=== PATIENT | female | born 1975 ===

== ENCOUNTER 2018-05-02 15:24 | Emergency (ER) | payer OTHER ==
[2018-05-02 15:24] VITALS: BMI 21.2
[2018-05-02 16:42] LABS: BASO % 0.5 % (0.0-2.0); EOS # 0.1 K/uL (0.0-0.7); HEMOGLOBIN 12.9 g/dL (11.0-16.0); LYMPH # 2.3 K/uL (1.0-4.3); LYMPH % 29.3 % (20.0-40.0); MEAN CELL VOLUME 91.7 fL (81.0-99.0); MEAN CORPUSCULAR HEMOGLOBIN 31.1 pg (27.0-31.0); MEAN CORPUSCULAR HGB CONC 33.9 g/dL (33.0-37.0); MEAN PLATELET VOLUME 7.6 fL (7.2-11.7); MONO # 0.5 K/uL (0.0-0.8); NEUT # 4.8 K/uL (1.8-7.0); NEUT % 62.2 % (50.0-75.0); NRBC % 0.1 % (0.0-2.0); RBC 4.15 Mil/uL (3.80-5.20); RED CELL DISTRIBUTION WIDTH 13.4 % (11.5-14.5); WHITE BLOOD COUNT 7.7 K/uL (4.8-10.8)
--- NOTE | 2018-05-02 16:52 | C.PDOC ---
History Of Present Illness <Marissa Brown - Last Filed: 05/02/18 17:05> <Francisco Javier Palafox DO - Last Filed: 05/03/18 00:33> Patient is a 43 year old Female with PMHx of ovarian cyst rupture in 2017 who presents for RLQ pain which started yesterday. Pain is described to be sharp and 10/10 which comes and goes and only lasts for a few seconds at a time. Patient tried taking some tylenol with no relief. Patient became worried because her presentation is similar to when she had the ovarian cyst rupture. Additionally, patient had egg retrieval done 2 weeks ago and went to her IVF doctor today who did an ultrasound and assured patient that the pain was not related to the egg retrieval. The IVF doctor recommended patient to go to the ER. Patient did not want to go to the ER yet and decided to go to her primary care physician instead who also encouraged her to go to the ER. At rest patient says her pain is 0/10, but with movement it is 10/10 pain. Patient denies any fevers, nausea, vomiting, constipation, or diarrhea. (Marissa Brown) History Per: Patient History/Exam Limitations: no limitations Onset/Duration Of Symptoms: Days Current Symptoms Are (Timing): Still Present Severity: Moderate Location Of Pain/Discomfort: RLQ Radiation Of Pain To:: None Quality Of Discomfort: Sharp Associated Symptoms: denies: Fever, Nausea, Vomiting, Diarrhea, Constipation Exacerbating Factors: Movement, Walking Alleviating Factors: Rest <Marissa Brown - Last Filed: 05/02/18 17:05> <Francisco Javier Palafox DO - Last Filed: 05/03/18 00:33> Chief Complaint (Nursing): Abdominal Pain Past Medical History - Medical History Other PMH: ovarian cyst rupture in 2017 Surgical History: Other Family History: mother: cervical cancer at 28 - Social History Hx Tobacco Use: No Hx Alcohol Use: Yes Hx Substance Use: No - Immunization History Hx Tetanus Toxoid Vaccination: No Hx Influenza Vaccination: Yes Hx Pneumococcal Vaccination: No <Marissa Brown - Last Filed: 05/02/18 17:05> Family History: States: No Known Family Hx <Francisco Javier Palafox DO - Last Filed: 05/03/18 00:33> Vital Signs: Last Vital Signs Temp 98.6 F 05/02/18 19:02 Pulse 68 05/02/18 19:02 Resp 18 05/02/18 19:02 BP 116/72 05/02/18 19:02 Pulse Ox 99 05/02/18 19:02 Review Of Systems Constitutional: Negative for: Fever, Chills Cardiovascular: Negative for: Chest Pain Respiratory: Negative for: Shortness of Breath Gastrointestinal: Positive for: Abdominal Pain (RLQ). Negative for: Nausea, Vomiting, Diarrhea, Constipation Genitourinary: Negative for: Dysuria Skin: Negative for: Rash <Marissa Brown - Last Filed: 05/02/18 17:05> Physical Exam - Physical Exam Appears: Non-toxic, No Acute Distress Skin: Normal Color, Warm, Dry Head: Atraumatic, Normacephalic Eye(s): bilateral: Normal Inspection Neck: Normal ROM Chest: Symmetrical Cardiovascular: Rhythm Regular, No Edema Respiratory: Normal Breath Sounds, No Accessory Muscle Use, No Rales, No Rhonchi , No Wheezing Gastrointestinal/Abdominal: Bowel Sounds, Soft, Tenderness (RLQ), Guarding (RLQ) Back: Normal Inspection Extremity: Normal ROM, No Tenderness, No Pedal Edema Neurological/Psych: Oriented x3 <Marissa Brown - Last Filed: 05/02/18 17:05> ED Course And Treatment - Laboratory Results Result Diagrams: 05/02/18 16:38 05/02/18 16:38 O2 Sat by Pulse Oximetry: 97 <Marissa Brown - Last Filed: 05/02/18 17:05> - Laboratory Results Result Diagrams: 05/02/18 16:38 05/02/18 16:38 <Francisco Javier Palafox DO - Last Filed: 05/03/18 00:33> Disposition <Marissa Brown - Last Filed: 05/02/18 17:05> - Disposition Disposition Time: 18:45 <Francisco Javier Palafox DO - Last Filed: 05/03/18 00:33> - Disposition Referrals: Cristi Valel [Staff Provider] - Disposition: HOME/ ROUTINE Condition: IMPROVED Additional Instructions: KNU OLIVIA, thank you for letting us take care of you today. Your provider was Francisco Javier Palafox DO. The emergency medical care you received today was directed at your acute symptoms. If you were prescribed any medication , please fill it and take as directed. It may take several days for your symptoms to resolve. Return to the Emergency Department if your symptoms worsen , do not improve, or if you have any other problems. Please contact your doctor or call one of the physicians/clinics you have been referred to that are listed on the Patient Visit Information form that is included in your discharge packet. Bring any paperwork you were given at discharge with you along with any medications you are taking to your follow up visit. Our treatment cannot replace ongoing medical care by a primary care provider outside of the emergency department. Thank you for allowing the [facility] team to be part of your care today. Follow up with your primary doctor in 1-2 days for re-evaluation and further management. Prescriptions: traMADol [Ultram] 50 mg PO Q8 PRN #15 tab PRN Reason: Pain, Severe (8-10) Instructions: Acute Abdomen (Belly Pain), Adult (DC) Forms: [employer] (Lao) - Clinical Impression Clinical Impression: Abdominal pain - PA / [employer] / Resident Statement / has reviewed & agrees with the documentation as recorded. / has examined the patient and agrees with the treatment plan. <Francisco Javier Palafox DO - Last Filed: 05/03/18 00:33>
[2018-05-02 17:01] LABS: URINE BILIRUBIN NEGATIVE (NEGATIVE); URINE BLOOD NEGATIVE (NEGATIVE); URINE CLARITY Clear (Clear); URINE COLOR Straw (YELLOW); URINE GLUCOSE (UA) NORMAL (Normal); URINE LEUKOCYTE ESTERASE NEG Leu/uL (Negative); URINE PROTEIN NEGATIVE (NEGATIVE); URINE UROBILINOGEN NORMAL mg/dL (0.2-1.0)
[2018-05-02 17:01] LABS: ALB/GLOB RATIO 1.2 (1.0-2.1); ALBUMIN 4.5 g/dL (3.5-5.0); AST/SGOT 26 U/L (14-36); BLOOD UREA NITROGEN 16 mg/dL (7-17); CALCIUM 9.7 mg/dl (8.6-10.4); GFR AFRICAN-AMERICAN > 60; GFR NON-AFRICAN AMERICAN > 60
[2018-05-02 17:02] LABS: ALT/SGPT < 6 U/L (9-52)
[2018-05-02] MEDS ORDERED: Iohexol 300 100 ML IJ ONE (18:02)
[2018-05-02] MEDS ORDERED: Morphine 4 MG/ML VIAL IV STA (18:27)
--- NOTE | 2018-05-02 18:36 | CT ---
PROCEDURE: CT Abdomen and Pelvis with contrast HISTORY: r/o appendicitis COMPARISON: CT scan of the abdomen pelvis dated 11/26/2016 performed at [facility]. TECHNIQUE: Contrast dose: 100 mL Omnipaque 300 Radiation dose: Total exam DLP = 293.5 mGy-cm. This CT exam was performed using one or more of the following dose reduction techniques: Automated exposure control, adjustment of the mA and/or kV according to patient size, and/or use of iterative reconstruction technique. FINDINGS: LOWER THORAX: Unremarkable. LIVER: Unremarkable. No gross lesion or ductal dilatation. GALLBLADDER AND BILE DUCTS: Unremarkable. PANCREAS: Unremarkable. No gross lesion or ductal dilatation. SPLEEN: Unremarkable. ADRENALS: Unremarkable. No mass. KIDNEYS AND URETERS: Unremarkable. No hydronephrosis. No solid mass. VASCULATURE: Unremarkable. No aortic aneurysm. BOWEL: Stable appearance of nonspecific coarse calcification along the lateral cecal wall. No obstruction. No gross mural thickening. APPENDIX: Normal appendix. PERITONEUM: Unremarkable. No free fluid. No free air. LYMPH NODES: Unremarkable. No enlarged lymph nodes. BLADDER: Unremarkable. REPRODUCTIVE: Unremarkable. BONES: No acute fracture. OTHER FINDINGS: None. IMPRESSION: No acute abdominal pelvic pathology. Normal appendix. Stable appearance of nonspecific coarse calcification along the lateral cecal wall.
[2018-05-02 19:03] VITALS: BP 116/72; PULSE 68; RESP 18; TEMP 98.6; O2SAT 99
== END 2018-05-02 19:45 | disposition home or self-care (01) ==
LOC: C.ER 15:24
DX: R10.9 Unspecified abdominal pain (principal); Z85.41 Personal history of malignant neoplasm of cervix uteri
CPT/HCPCS: 74177; 80053; 81001; 84703; 85025; 87086; 96374; 99284; J1885; Q9967